=== PATIENT | male | born 1950 | race Two or more races ===

== ENCOUNTER 2019-08-26 02:10 | Emergency (ER) | payer MEDICARE, BC ==
[~2019-08-26] VITALS: Ht 177.8 cm; Wt 83.9 kg
--- NOTE | 2019-08-26 02:14 | NUR ---
PT [id number] FROM HOME C/C DIZZINESS, "ROOM SPINNING" , N/V. PT AOX4. PT DENIES PAIN AT THIS TIME. PT ON MONITOR IN BED 3. WILL CONTINUE TO MONITOR.
--- NOTE | 2019-08-26 02:25 | NUR ---
BLOOD DRAWN AND GIVEN TO LAB
--- NOTE | 2019-08-26 02:27 | NUR ---
FAMILY AT BEDSIDE
[2019-08-26] MEDS ORDERED: MECLIZINE HCL 25 MG TABLET ONE (02:29)
[2019-08-26] MEDS ORDERED: ONDANSETRON HCL/PF 4 MG/2 ML VIAL ONE (02:29)
[2019-08-26] MEDS ORDERED: MECLIZINE HCL 25 MG TABLET PO ONE (02:30)
[2019-08-26] MEDS ORDERED: ONDANSETRON HCL/PF 4 MG/2 ML VIAL IVP ONE (02:30)
[2019-08-26] MEDS ORDERED: IV NS 0.9% 500 ML BAG IV ONE (02:30)
[2019-08-26 02:37] LABS: BASOPHILS % (AUTO) 0.6 % (0.0-2.0); EOSINOPHILS % (AUTO) 2.3 % (0.0-6.0); HEMATOCRIT 40 % (39-51); HEMOGLOBIN 13.7 g/dL (13.5-17.5); LYMPHOCYTES # (AUTO) 2.2 /CMM (0.8-4.8); LYMPHOCYTES % (AUTO) 39.2 % (20.0-44.0); MEAN CORPUSCULAR HGB CONC 34 g/dl (31.0-36.0); MEAN CORPUSCULAR VOLUME 89 fL (80-96); MONOCYTES # (AUTO) 0.6 /CMM (0.1-1.30); MONOCYTES % (AUTO) 11.1 % (2.0-12.0); NEUTROPHILS # (AUTO) 2.6 /CMM (1.8-8.9); NEUTROPHILS % (AUTO) 46.8 % (43.0-81.0); PLATELET COUNT (AUTO) 155 /CMM (150-450); RED BLOOD CELL COUNT(AUTO) 4.52 MIL/uL (4.5-6.0); WHITE BLOOD COUNT (AUTO) 5.6 K/uL (4.3-11.0)
--- NOTE | 2019-08-26 02:41 | NUR ---
PT TAKEN TO RADIOLOGY VIA [facility]
[2019-08-26 02:43] LABS: CALCIUM, SERUM 8.9 mg/dL (8.5-10.1); CARBON DIOXIDE 26 mmol/L (21-32); CHLORIDE 103 mmol/L (98-107); CREATININE 0.8 mg/dL (0.6-1.3); GLUCOSE 157 mg/dL (74-106); POTASSIUM 3.4 mmol/L (3.5-5.1); SODIUM SERUM 139 mmol/L (136-145); UREA NITROGEN, BLOOD 26 mg/dL (7-18)
[2019-08-26 03:00] LABS: ALANINE AMINOTRANSFERASE 22 U/L (12-78); ALBUMIN 3.7 g/dL (3.4-5.0); ALKALINE PHOSPHATASE 44 U/L (46-116); ASPARTATE AMINOTRANSFERASE 18 U/L (15-37); BILIRUBIN,DIRECT 0.1 mg/dL (0.0-0.2); BILIRUBIN,TOTAL 0.4 mg/dL (0.2-1.0); TOTAL PROTEIN, SERUM 6.9 g/dL (6.4-8.2)
--- NOTE | 2019-08-26 03:01 | NUR ---
PT RETURNED FROM RADIOLOGY VIA [facility]
[2019-08-26] MEDS ORDERED: LORAZEPAM INJ 2 MG/ML VIAL ONE (03:16)
[2019-08-26] MEDS ORDERED: METOCLOPRAMIDE HCL 10 MG/2 ML VIAL ONE (03:16)
--- NOTE | 2019-08-26 03:23 | NUR ---
Patient is resting comfortably in bed with eyes closed. Easily aroused. VSS. FAMILY AT BEDSIDE.
[2019-08-26] MEDS ORDERED: MORPHINE SULFATE INJ 10 MG/ML DISP.SYRIN IV ONE (03:30)
[2019-08-26] MEDS ORDERED: LORAZEPAM INJ 2 MG/ML VIAL IV ONE (03:30)
[2019-08-26] MEDS ORDERED: METOCLOPRAMIDE HCL 10 MG/2 ML VIAL IV ONE (03:30)
[2019-08-26 04:15] VITALS: BP 109/54
--- NOTE | 2019-08-26 04:15 | NUR ---
Patient is resting comfortably in bed with eyes closed. Easily aroused. VSS.
--- NOTE | 2019-08-26 05:39 | NUR ---
IV removed. Catheter intact and site benign. Pressure and 4x4 applied to site. No bleeding noted.Patient discharged to home in stable condition. Written and verbal after care instructions given. Patient verbalizes understanding of instruction. PT AMBULATORY WITH STEADY GAIT ACCOMPANIED BY FAMILY.
== END 2019-08-26 05:45 | disposition home or self-care (01) ==
LOC: ER 02:12
DX: R42 Dizziness and giddiness (principal); R11.2 Nausea with vomiting, unspecified
CPT/HCPCS: 36415; 70450; 71045; 80048; 80076; 84484; 85025; 93005; 96374; 96375; 99284; A4216; J2060; J2405; J2765; J7040; J8597